=== PATIENT | female | born 1965 | race Caucasian/White ===

== ENCOUNTER 2017-08-24 16:15 | Emergency (ER) | payer BC, OTHER ==
[~2017-08-24] VITALS: Ht 170.2 cm; Wt 101.6 kg
[2017-08-24 16:27] VITALS: BP 117/58
--- NOTE | 2017-08-24 16:52 | PHYS DOC ---
Past History Past Medical History: Hypothyroid Past Surgical History: Other Alcohol Use: Occasionally Drug Use: None Adult General Chief Complaint Chief Complaint: HAND PROBLEM HPI HPI Patient is a 52 year old female who presents with complaint of left thumb pain. Patient first noticed pain to her left thumb approximately 3 weeks ago. Patient states that the pain runs along the base of her thumb towards the lateral aspect. Patient states that the pain worsens with movement. The patient denies any known injury. Patient noticed mild swelling to the thumb a couple weeks ago but states that this has improved spontaneously. Patient denies any associated fever or lymphangitic streaking. Patient has not had history of similar symptoms. The patient states that last night she started having worsening pain to the point she had to take hydrocodone to help. Patient denies any worsening swelling today. Patient went to see her primary doctor but was told come to the emergency department for further evaluation. Patient states that she is not having pain to the bones but is having pain along the muscular portion of the left hand towards the base of the thumb. Review of Systems Review of Systems Constitutional: Denies fever or chills [] Eyes: Denies change in visual acuity, redness, or eye pain [] HENT: Denies nasal congestion or sore throat [] Respiratory: Denies cough or shortness of breath [] Cardiovascular: Denies chest pain or edema[] GI: Denies abdominal pain, nausea, vomiting, bloody stools or diarrhea [] : Denies dysuria or hematuria [] Musculoskeletal: Left thumb pain[] Integument: Denies rash or skin lesions [] Neurologic: Denies headache, focal weakness or sensory changes [] All other systems were reviewed and found to be within normal limits, except as documented in this note. Allergies Allergies No known drug allergies Physical Exam Physical Exam Constitutional: Well developed, well nourished, no acute distress, non-toxic appearance. [] HENT: Normocephalic, atraumatic, bilateral external ears normal, oropharynx moist, no oral exudates, nose normal. [] Eyes: PERRLA, EOMI, conjunctiva normal, no discharge. [] Neck: Normal range of motion, no tenderness, supple, no stridor. [] Cardiovascular:Heart rate regular rhythm, no murmur [] Lungs & Thorax: Bilateral breath sounds clear to auscultation [] Abdomen: Bowel sounds normal, soft, no tenderness, no masses, no pulsatile masses. [] Skin: Warm, dry, no erythema, no rash. [] Back: No tenderness, no CVA tenderness. [] Extremities: No obvious deformity to left thumb, tenderness palpation along the thenar eminence and lateral ventral aspect of left thumb, pain with flexion against stationary object, no tenderness to palpation over first MTP joint, metacarpal bone, or phalanges, no cyanosis, no clubbing, ROM intact, no edema. [ ] Neurologic: Alert and oriented X 3, normal motor function, normal sensory function, no focal deficits noted. [] Current Patient Data Vital Signs Vital Signs Date Time Temp Pulse Resp B/P (MAP) Pulse Ox O2 Delivery O2 Flow Rate FiO2 08/24/17 16:27 98.1 61 18 98 Room Air Lab Results Not performed EKG EKG Not performed[] Radiology/Procedures Radiology/Procedures X-ray left thumb offered but declined by patient.[] Course & Med Decision Making Course & Med Decision Making Pertinent Labs and Imaging studies reviewed. (See chart for details) The patient's symptoms appear consistent with tendinitis of the thumb. This is likely due to overuse injury. Spoke with patient regarding obtaining x-rays in the emergency department, however these were declined. I do not feel this is unreasonable as I do have low index of suspicion for acute fracture. The patient was recommended to start on naproxen therapy 440 mg twice a day for 4 days, then 220 mg twice a day for 3-4 days. Advised follow-up with primary doctor in 1 week if symptoms are not improving and return to emergency department for any worsening symptoms. Patient voiced understanding and in agreement with treatment plan. Dragon Disclaimer Dragon Disclaimer This electronic medical record was generated, in whole or in part, using a voice recognition dictation system. Departure Departure: Impression: Primary Impression: Tendinitis of thumb Disposition: 01 HOME, SELF-CARE Condition: STABLE Referrals: PCP,BINTA (PCP) Patient Instructions: Tendinitis Additional Instructions: You may take [id number] naproxen 440 mg twice a day for 4 days, then take 220 mg twice a day for 3-4 days to treat inflammation and your left thumb. Follow-up with your primary doctor in 1 week if symptoms are not improving. Return to emergency department for any worsening symptoms. JORDAN ANGELES MD Aug 24, 2017 16:52
== END 2017-08-24 16:58 | disposition home or self-care (01) ==
LOC: ER 16:15
DX: M77.8 Other enthesopathies, not elsewhere classified (principal); E03.9 Hypothyroidism, unspecified
CPT/HCPCS: 99281

== ENCOUNTER 2019-05-08 08:12 | Emergency (ER) | payer BC ==
[~2019-05-08] VITALS: Ht 167.6 cm; Wt 97.0 kg
--- NOTE | 2019-05-08 08:23 | PHYS DOC ---
Past History Past Medical History: Hypothyroid Past Surgical History: Other Smoking: Non-smoker Alcohol Use: Occasionally Drug Use: None Adult General Chief Complaint Chief Complaint: CHEST PAIN HPI HPI Patient is a 54-year-old female with a past medical history of hypothyroidism is presenting to the emergency department with a chief complaint of chest pain. She states that around 2 AM this morning she woke up with back pain that was l ocalized to her upper back, she took Aleve and this did not help the pain. She states that the pain then began to radiate to her chest, the left side of her chest and it has been constant ever since. Patient states that this has never happened before, she has no history of heart disease, she had no shortness of breath or diaphoresis with this episode. He states that it is constant, localized, and worse with activity. She reports that she has mild anxiety. Do not take aspirin home and does not regularly take aspirin. Denies leg swelling or calf tenderness. Patient denies any other symptoms, denies trauma. Denies cardiac risk factors. Denies hx or family history of PE/DVT. Review of Systems Review of Systems Constitutional: Denies fever or chills Eyes: Denies redness or eye pain HENT: Denies nasal congestion or sore throat Respiratory: Denies cough or shortness of breath Cardiovascular: Denies palpitations, reports chest pain GI: Denies abdominal pain, nausea, or vomiting : Denies dysuria or hematuria Musculoskeletal: Reports upper left back pain, denies joint pain Integument: Denies rash or skin lesions Neurologic: Denies headache, focal weakness or sensory changes Complete systems were reviewed and found to be within normal limits, except as documented in this note. Allergies Allergies Allergies Coded Allergies Type Severity Reaction Last Updated Verified loratadine Allergy Unknown 05/08/19 Yes Physical Exam Physical Exam Constitutional: Well developed, well nourished, no acute distress, non-toxic appearance HENT: Normocephalic, atraumatic, oropharynx moist Eyes: PERRL, EOMI, conjunctiva normal, no discharge Neck: Normal range of motion, no tenderness, supple Cardiovascular: Heart rate normal, regular rhythm Lungs & Thorax: Bilateral breath sounds clear to auscultation, no wheezing Abdomen: Soft, no tenderness Skin: Warm, dry, no erythema, no rash Back: No CVA tenderness, mild generalized left sided upper thoracic paraspinal tenderness, no midline tenderness or step-offs palpated. Extremities: No tenderness, ROM intact, no edema Neurologic: Alert and oriented X 3, no focal deficits noted Psychologic: Affect normal, judgement normal EKG EKG @0819 NSR at 68bpm, NO ST elevation, Radiology/Procedures Radiology/Procedures PROCEDURE: CHEST PA & LATERAL CHEST PA LATERAL History: Chest pain Comparison: None. Findings: 2 views of the chest are submitted. There is no dependent pleural fluid or pneumothorax. There is likely mild right base atelectasis. Pericardial cardiac silhouette is upper limits of normal. Impression: 1. There is likely mild right base atelectasis. Electronically signed by: Kimberly Bob MD (05/08/2019 8:43 AM) [id number] DICTATED AND SIGNED BY: KIMBERLY BOB MD DATE: 05/08/19842 CC: PCP,BINTA; DAYLIN LOVE DO ~ Course & Med Decision Making Course & Med Decision Making Pertinent Labs and Imaging studies reviewed. (See chart for details) Patient is a 54-year-old female with a past medical history of hypothyroidism is presenting to the emergency department with chief complaint of chest pain and upper left thoracic paraspinal thoracic back pain Pt was seen and evaluated at bedside. EKG was normal sinus rhythm at [address] elevation. Labs and imaging were at baseline. Troponin WNL. Pain was addressed. HEART score 1. No clinical signs of PE/DVT. Patient stable for discharge with outpatient follow-up with PCP and/or pain management. Pain management referral provided. Discussed findings and plan with patient, who acknowledges understanding and agreement. Dragon Disclaimer Dragon Disclaimer This electronic medical record was generated, in whole or in part, using a voice recognition dictation system. Departure Departure: Impression: Primary Impression: Chest pain Additional Impression: Back pain Disposition: 01 HOME, SELF-CARE Condition: STABLE Referrals: PCP,BINTA (PCP) Patient Instructions: Back Pain, Adult, [id number], Chest Pain (Nonspecific), [id number] Additional Instructions: Please call and make appointment to see Dr. Mich Brothers (Pain management) at [facility] in next 3-5 days at [facility] Orphenadrine Citrate (ORPHENADRINE CITRATE) 100 Mg Tablet.er 1 TAB PO BID PRN for MUSCLE PAIN, #14 TAB 0 Refills Prov: DAYLIN LOVE DO 05/08/19 HEART Score for Chest Pain PTs The HEART Score for CP Pts HEART Score for Chest Pain: HEART Score for Chest Pain Response (Comments) Value History Slighlty/Non-Suspicious 0 ECG Normal 0 Age >45 - < 65 1 Risk Factors No Risk Factors 0 Troponin < Normal Limit 0 Total 1 Risk Factors: Risk Factors: DM, Current or recent (<one month) smoker, HTN, HLP, family history of CAD, obesity. Risk Scores: Score 0 - 3: 2.5% MACE over next 6 weeks - Discharge Home Score 4 - 6: 20.3% MACE over next 6 weeks - Admit for Clinical Observation Score 7 - 10: 72.7% MACE over next 6 weeks - Early Invasive Strategies Problem Qualifiers Primary Impression: Chest pain Chest pain type: unspecified Qualified Codes: R07.9 - Chest pain, unspecified Additional Impression: Back pain Back pain location: thoracic back pain Chronicity: acute Back pain laterality: left Qualified Codes: M54.6 - Pain in thoracic spine DAYLIN LOVE DO May 08, 2019 08:23
[2019-05-08] MEDS ORDERED: ASPIRIN 325 MG TABLET PO ONE (08:30)
[2019-05-08 08:43] LABS: BASO % 1 % (0-3); EOS # 0.1 x10^3/uL (0.0-0.7); EOS % 1 % (0-3); HEMATOCRIT 40.9 % (36.0-47.0); HEMOGLOBIN 13.9 g/dL (12.0-15.5); LYMPH # 2.4 x10^3/uL (1.0-4.8); LYMPH % 38 % (24-48); MEAN CORPUSCULAR HEMOGLOBIN 31 pg (25-35); MEAN CORPUSCULAR HGB CONC 34 g/dL (31-37); MEAN CORPUSCULAR VOLUME 90 fL (79-100); MONO # 0.7 x10^3/uL (0.0-1.1); MONO % 10 % (0-9); NEUT # 3.2 x10^3uL (1.8-7.7); NEUT % 50 % (31-73); PLATELET COUNT 292 x10^3/uL (140-400); RED BLOOD COUNT 4.52 x10^6/uL (3.50-5.40); RED CELL DISTRIBUTION WIDTH 13.5 % (11.5-14.5); WHITE BLOOD COUNT 6.4 x10^3/uL (4.0-11.0)
[2019-05-08] MEDS ORDERED: KETOROLAC 15 MG/ML VIAL. IVP ONE (08:45)
--- NOTE | 2019-05-08 08:46 | RAD ---
CHEST PA LATERAL History: Chest pain Comparison: None. Findings: 2 views of the chest are submitted. There is no dependent pleural fluid or pneumothorax. There is likely mild right base atelectasis. Pericardial cardiac silhouette is upper limits of normal. Impression: 1. There is likely mild right base atelectasis. Electronically signed by: Tello Waters MD (05/08/2019 8:43 AM) [id number]
[2019-05-08 08:51] LABS: CALCIUM 8.7 mg/dL (8.5-10.1); CREATININE 0.7 mg/dL (0.6-1.0); GFR 87.2; POTASSIUM 3.7 mmol/L (3.5-5.1)
[2019-05-08 09:08] LABS: ALBUMIN 3.7 g/dL (3.4-5.0); ALBUMIN/GLOBULIN RATIO 1.1 (1.0-1.7); TOTAL BILIRUBIN 0.4 mg/dL (0.2-1.0); TOTAL PROTEIN 7.2 g/dL (6.4-8.2)
[2019-05-08] MEDS ORDERED: ORPH-16 PO (09:21)
[2019-05-08 09:25] VITALS: BP 129/88
--- NOTE | 2019-05-08 17:43 | EKG ---
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
== END 2019-05-08 09:25 | disposition home or self-care (01) ==
LOC: ER 08:12
DX: R07.89 Other chest pain (principal); M54.6 Pain in thoracic spine; E03.9 Hypothyroidism, unspecified; Z88.8 Allergy status to other drugs, medicaments and biological substances
CPT/HCPCS: 36415; 71046; 80053; 82553; 83690; 83735; 83880; 84484; 85025; 85610; 85730; 93005; 96374; 99285; J1885